=== PATIENT | female | born 1945 | race Caucasian/White ===

== ENCOUNTER 2017-11-18 17:02 | Emergency (ER) | payer OTHER ==
[~2017-11-18] VITALS: Ht 172.7 cm; Wt 81.6 kg
[~2017-11-18 17:02] MED LIST: ALEVE220 M1 PO; ALEVE220 MG PO; ANTIVERT/2525 MG PO; HYDR25T PO; OMEPRAZOLE20 MG PO; PEPCID20 MG PO; PHENERGAN25 M1 PO; PRILOSEC20 M1 PO; TORADOL10 MG PO; Zestril,Prinivil5 MG PO
[2017-11-18 17:46] LABS: BASO % 0.7 % (0.0-1.0); EOS # 0.3 10*3/uL (0.0-0.4); EOS % 4.4 % (1.0-4.0); HEMATOCRIT 41.1 % (37.0-47.0); HEMOGLOBIN 13.2 g/dl (12.0-16.0); LYMPH % 33.5 % (27.0-41.0); MEAN CELL VOLUME 92.8 fl (81.0-99.0); MEAN CORPUSCULAR HGB 29.8 pg (27.0-31.0); MEAN CORPUSCULAR HGB CONC 32.1 g/dl (33.0-37.0); MEAN PLATELET VOLUME 9.7 fl (9.6-12.3); MONO # 0.8 10*3/uL (0.1-1.0); MONO % 13.5 % (3.0-9.0); NEUT # 2.8 10*3/uL (2.3-7.9); NEUT % 47.6 % (47.0-73.0); PLATELET COUNT AUTOMATED 214 10*3/uL (130-400); RED BLOOD COUNT 4.43 10*6/uL (4.10-5.10); RED CELL DISTRI WIDTH 13.4 % (0-14.5); WHITE BLOOD COUNT 5.9 10*3/uL (4.8-10.8)
[2017-11-18 18:00] LABS: ALBUMIN 3.4 gm/dl (3.1-4.5); CREATININE 1.19 mg/dL (0.55-1.02); POTASSIUM 3.8 mmol/L (3.5-5.1); TOTAL PROTEIN 7.1 gm/dL (6.4-8.2)
[2017-11-18 18:19] LABS: BILIRUBIN NEGATIVE (NEGATIVE); BLOOD TRACE-INTACT (NEGATIVE); CLARITY CLEAR (CLEAR); COLOR YELLOW (YELLOW); GLUCOSE NEGATIVE (NEGATIVE); KETONE TRACE (NEGATIVE); LEUKO ESTERASE NEGATIVE (NEGATIVE); NITRITE NEGATIVE (NEGATIVE); PH 5.5 (5.0-9.0); SPECIFIC GRAVITY >= 1.030 (1.005-1.030); UROBILINOGEN 0.2 E.U./dl (0.2-1.0)
[2017-11-18 18:25] LABS: BACTERIA TRACE; EPITHELIAL CELLS 20-25; MUCOUS 1+; WBC 0-2 wbc/hpf (0-5)
[2017-11-18] MEDS ORDERED: ANUSOL-HC25 MG R (19:47)
[2017-11-18] MEDS ORDERED: CIPRO500 MG PO (19:47)
[2017-11-18] MEDS ORDERED: FLAGYL500 MG PO (19:47)
[2017-11-18 19:52] VITALS: BP 138/78
== END 2017-11-18 19:57 | disposition home or self-care (01) ==
LOC: ED 17:02
PROVIDERS: Nurse Practitioner Family
DX: K64.8 Other hemorrhoids (principal); K57.32 Diverticulitis of large intestine without perforation or abscess without bleeding; Z90.710 Acquired absence of both cervix and uterus; Z98.890 Other specified postprocedural states; Z79.899 Other long term (current) drug therapy; Z91.041 Radiographic dye allergy status; Z88.0 Allergy status to penicillin

== ENCOUNTER 2018-04-05 13:12 | Inpatient (IN) | payer OTHER ==
[~2018-04-05] VITALS: Ht 172.7 cm; Wt 81.6 kg
--- NOTE | ~2018-04-05 | PR ---
[place], [place] PROGRESS NOTE NAME: BECCA ALEXANDRE UNIT #: [id number] ROOM: 412 DOCTOR: SALVATORE GONZALEZ MD,DADA BIRTHDATE: [birth year] DOS: 04/07/2018 SUBJECTIVE: The patient was noted comfortable at this time without any acute distress. Bronchoscopy done yesterday with partial reduction in the cough, however, still noted significant cough. Shortness of breath occurs with exertion. Denies symptoms of fever or chills or any chest pain. Denies symptoms of nausea or vomiting. OBJECTIVE: VITAL SIGNS: For the patient which were recorded showed the temperature is normal in the last 24 hours. The respiratory rate of the patient recorded as 21, heart rate of 117-102, blood pressure 139/74 to 130/82. Pulse oxygen saturation on room air was 92% saturation. HEENT: Head was atraumatic. Eyes nonicterus. NECK: Supple. CARDIOVASCULAR SYSTEM: S1, S2 audible. LUNGS: The patient was noted without any crackles. There was no wheezing. Decreased breath sounds in the lower portion of the lungs. ABDOMEN: Soft, nontender. EXTREMITIES: No edema. IMPRESSION: Acute congestive heart failure with bilateral pleural fluid, pending echocardiogram for the patient in atrial fibrillation. Acute tracheobronchitis, suspected bronchial asthma and cough, other multiple factors. The culture results were pending. The bronchial washing pending. PLAN OF TREATMENT: The patient has been ordered diuretics. Lasix 40 mg b.i.d. 2 doses today by Cardiology Services. Await for the echocardiogram assessment. Continue culture results. Reduction in Solu-Medrol. Tomorrow, switching the patient to oral medication. Further workup to be done after maximal medical management of the patient's cardiac disease during this hospitalization, outpatient would be advised. DADA CHASE MD CM:ANIL [id number] DADA GONZALEZ MD 04/08/18 0102 interface
--- NOTE | ~2018-04-05 | EKG ---
[place], [place] ELECTROCARDIOGRAM REPORT NAME: BECCA ALEXANDRE UNIT #: [id number] ROOM: 412 DOCTOR: ENID DRAFT REPORT BIRTHDATE: [birth year] [facility] Test Date: 2018-04-05 Test Time: 16:17:24 Pat Name: BECCA ALEXANDRE Department: Room: 412 Gender: F Project Developer: : 1945 Requested By: MAURISIO ALLEN Order Number: [id number] Reading MD: Anders Moss MD Measurements Intervals [place] Rate: 88 P: [place]: QRS: 29 QRSD: 89 T: -6 QT: 371 QTc: 449 Interpretive Statements Atrial fibrillation Ventricular premature complex Borderline T abnormalities, inferior leads Baseline wander in lead(s) V2 No previous ECG available for comparison Electronically Signed On 04-12-2018 13:06:13 PST by Anders Moss MD CM:EKGRPT:ELECTROCARDIOGRAM REPORT 1617 1306 MAURISIO ALLEN EPIPHANY DRAFT REPORT MAURISIO ALLEN
--- NOTE | ~2018-04-05 | PR ---
[place], [place] PROGRESS NOTE NAME: BECCA ALEXANDRE UNIT #: [id number] ROOM: 412 DOCTOR: SALVATORE GONZALEZ MD,DADA BIRTHDATE: [birth year] DOS: 04/08/2018 PULMONARY PROGRESS NOTE SUBJECTIVE: The patient was complaining of pain in the back that occurred last night with radiation to the front. The pain was noted with tenderness in the right lower quadrant. The patient was also noted with vomiting. She denies symptoms of hemoptysis, fever, or chills. Cough has remained and not resolved. She denies any symptoms of pain of the chest. The remaining systems were reviewed and they were noted all negative. OBJECTIVE: VITAL SIGNS: The vital signs of the patient, which has been recorded shows normal temperature, respiratory rate of 20, heart rate of 118-99, and blood pressure of 145/83-138/80. The pulse oxygen saturation recorded as 93% at rest on room air. HEENT: On examination, no acute change. NECK: Supple. CARDIOVASCULAR: S1, S2 is audible. LUNGS: The patient was noted without any crackles, rhonchi, or wheezing. ABDOMEN: Noted tenderness in the right lower quadrant. Bowel sounds present. EXTREMITIES: Without any acute edema. MUSCULOSKELETAL: Without any acute deformities. LABORATORY DATA: BMP of the patient this morning, BUN is 25, creatinine is 1.19, and glucose is 142. CBC this morning: WBC count is normal, hemoglobin is 10.8, hematocrit is 34.0, and platelet count is normal. Culture of the bronchial washing were noted as normal lynda. DIAGNOSTIC DATA: CT scan of the abdomen and pelvis that was completed by the radiologist report reported pericholecystic fluid, possibility of cholecystitis would be raised. Also, 5.1 segment of wall thickening of sigmoid colon was also stated. Barium enema, colonoscopy was suggested. The lower portion of the CT of the thorax was reviewed, which shows partial reduction of the small pleural fluid. IMPRESSION: 1. Possible cholecystitis with sigmoid diverticulitis as well. 2. The patient with cough related to bronchial aspiration of the etiology, which has been still noted persistent. Cultures of the bronchial washing were noted as negative. PLAN OF MANAGEMENT: At this time, discontinue the oral corticosteroids for this patient. The patient was ordered symptomatic management of cough with the use of the Robitussin-AC. Follow the recommendation of the instrument shop supervisor for the pleural fluid, tachycardia, and others including congestive heart failure. GI consultation might be needed for further assessment. Other supportive therapy, plan of management, care at this time. Additional treatment changes will be done based on the progression of the illness. [place], [place] PROGRESS NOTE NAME: BECCA ALEXANDRE UNIT #: [id number] ROOM: [facility] DOCTOR: DADA ACUNA MD BIRTHDATE: [birth year] DADA CHASE MD CM:PNTRANS 1201 DADA GONZALEZ MD 04/09/18 0112 interface
--- NOTE | ~2018-04-05 | PROC NOTE ---
[place], [place] PROCEDURE NOTE NAME: BECCA ALEXANDRE UNIT #: [id number] ROOM: 412 DOCTOR: SALVATORE GONZALEZ MD,DADA BIRTHDATE: [birth year] DOS: 04/06/2018 BRONCHOSCOPY NOTE PREOPERATIVE DIAGNOSIS: Persistent severe nonproductive cough, inability to expectorate sputum. POSTOPERATIVE DIAGNOSES: Removal of small amount of mucus impaction of major airways bilaterally. There were no endobronchial obstructive lesions. PROCEDURE DESCRIPTION: Informed consent obtained for the patient. The patient brought to the OR and placed in supine position. Conscious sedation administered by Anesthesia Department. After achieving appropriate sedation, airway introduced into the mouth. Bronchoscope advanced to airway into laryngeal area. Epiglottis and vocal cords were seen. Vocal cord is moving symmetrical movements. Bronchoscope advanced into the tracheal lumen. A small amount of secretion present in tracheal lumen, which was suctioned out and sent for cultures. The endobronchial tree was inspected as right upper, right middle, right lower, left upper, lingular lower lobe bronchi. Small amount of mucus present in the endobronchial tree without any endobronchial obstructive lesions. All the secretions suctioned out. Mucus plugs were removed and sent for culture. Procedure well tolerated by the patient without any difficulty. Postoperative findings will be discussed with the patient once the patient recovered the effects of acute sedation. DADA CHASE MD CM:PROCNOTE:PROCEDURE NOTE [id number] 2201 DADA GONZALEZ MD
--- NOTE | ~2018-04-05 | CON ---
[place], [place] REPORT OF CONSULTATION NAME: BECCA ALEXANDRE UNIT #: [id number] ROOM: 412 DOCTOR: SALVATORE GONZALEZ MDDADA BIRTHDATE: [birth year] DOS: 04/06/2018 REASON FOR CONSULTATION: Severe nonresolving cough, ongoing for the past 3 months, nonresolving. HISTORY OF PRESENT ILLNESS: This is a 72-year-old white female patient who presented to the Emergency Room initially reported symptoms of having severe coughing, inability to expectorate sputum, stating that she has "fireball in her throat, cannot expectorate." The patient's symptoms have been started as the patient underwent EGD, who stated that she has been not feeling well since then. She has been seen by the merchandise appraiser. The patient was prescribed Biaxin. She has taken the medication without any improvement in symptom. She does have symptoms of wheezing as well as with shortness of breath with exertion. Denies symptoms of chest pain. The patient has been admitted to the hospital for further medical management at the present time. REVIEW OF SYSTEMS: CONSTITUTIONAL: Fatigue and tiredness reported, without any symptoms of fever or chills. EYES: Denies any burning, redness, or tenderness. EARS, NOSE, THROAT SYMPTOMS: Denies sore throat, hoarseness, otalgia, postnasal drainage or epistaxis. CARDIOVASCULAR: Denies angina pain, edema, pain of the lower extremities. GASTROINTESTINAL: Dysphagia, nausea, vomiting, diarrhea, abdominal pain, hematemesis, melena, or hematochezia. GENITOURINARY: No dysuria, suprapubic pain, hematuria. VISIBLE SKIN: Denies any lesions, rashes or open areas. MUSCULOSKELETAL: No acute joint pain, redness or tenderness. CENTRAL NERVOUS SYSTEM: Denies dizziness, diplopia, syncopal episode, or seizures. Remaining systems were reviewed and they were noted all negative. PAST MEDICAL HISTORY: The patient was known with history of: 1. Gastroesophageal reflux. 2. Essential hypertension. PAST SURGICAL HISTORY: For this patient was: 1. Craniotomy for the brain tumor. 2. EGD. 3. Colonoscopy. SOCIAL HISTORY: The patient is , has 2 children, lives at home. Denies any history of alcohol use, illicit drug use or tobacco use. FAMILY HISTORY: Father at age of 7878 years old of myocardial infarction. Mother of 65-year-old of myocardial infarction as well. HOME MEDICATIONS: Noted use of lisinopril, Protonix and Anusol suppository. DRUG ALLERGIES: [place], [place] REPORT OF CONSULTATION NAME: BECCA ALEXANDRE UNIT #: [id number] ROOM: 412 DOCTOR: SALVATORE GONZALEZ MD,DADA BIRTHDATE: [birth year] 1. IVP DYE. 2. PENICILLIN. 3. METRONIDAZOLE. PHYSICAL EXAMINATION: GENERAL: This is a 72-year-old white female who has been currently noted awake, alert, in no acute distress this morning of assessment. N.p.o. past midnight. Height of 5 feet 5 inches, weight of 181, BUN 29. VITAL SIGNS: For the patient which has been recorded shows a normal temperature, respiratory rate 18-20, heart rate of 131 for the patient to 103, blood pressure 149/68-144/64. Pulse oxygen saturation recorded as 90% at rest on room air. HEENT: Examination shows head was atraumatic. Eyes nonicterus. NECK: Supple. CARDIOVASCULAR: S1, S2 audible. LUNGS: The patient noted [id number] decreased breath sounds, no wheeze or crackles. ABDOMEN: Soft, nontender. Bowel sounds present. EXTREMITIES: No acute edema. MUSCULOSKELETAL: Without any acute deformities except mild senile kyphosis. CENTRAL NERVOUS SYSTEM: Cranial nerves 2-12 intact. LABORATORY DATA: The patient's CBC that was done yesterday on admission was noted as normal WBC count, hemoglobin and hematocrit. Eosinophils was elevated at 3.9%. Lactic acid 1.2. CMP that was done yesterday noted normal BUN and creatinine. Potassium 2.5. CBC that was done this morning, WBC count 2.9, hemoglobin 11.4, platelet count was normal. CMP of the patient this morning BUN 10, creatinine 1.04. Glucose 150, potassium 3.2. Chest x-ray that was done was not noted with any acute pulmonary abnormality. The chest CT scan, which was done without contrast reviewed personally on PACS images show evidence of ground glass opacities noted in the lungs bilaterally with evidence of a drhek-by-jqgngvdq right and a very small left pleural effusion. IMPRESSION: 1. The patient who has been currently admitted to the hospital with severe nonproductive cough, inability to expectorate sputum, possible mucus impaction. 2. Coughing, most likely related to congestive heart failure which is the cause of this patient's bilateral pleural fluid as well. Angiotensin converting enzyme inhibitor resulting in the cough would be also considered in the differential diagnosis. Other differential to be considered possibility of occult bronchial asthma, manifesting as cough with possibility of micro-aspirations. PLAN OF MANAGEMENT: Proceed for bronchoscopy and endobronchial tree for the patency. The patient getting Solu-Medrol that will be continued. Cardiology assessment for the assessment of cardiac function. Echocardiogram for the patient. Discontinue lisinopril, replace it with the addition medication such as ARB medication to prevent the side effect relayed as cough. Bronchodilator will be continued. The patient has been also noted to have tachycardia, which has been assessed by the Cardiology Services. Other additional treatment [place], [place] REPORT OF CONSULTATION NAME: BECCA ALEXANDRE UNIT #: [id number] ROOM: 412 DOCTOR: DADA ACUNA MD BIRTHDATE: [birth year] changes will be made based on progression of the illness. Usual care. Supportive therapy, plan of management, care plan of treatment and other care. DADA CHASE MD CM:CONSTR:REPORT OF CONSULTATION 1231 04/06/18 1612 interface
--- NOTE | ~2018-04-05 | EKG ---
[place], [place] ELECTROCARDIOGRAM REPORT NAME: BECCA ALEXANDRE UNIT #: [id number] ROOM: 412 DOCTOR: ENID DRAFT REPORT BIRTHDATE: [birth year] [facility] Test Date: 2018-04-06 Test Time: 10:52:53 Pat Name: BECCA ALEXANDRE Department: Room: 412 2 Gender: F Remote Pilot Operator: Olivia Lund : 1945 Requested By: WILMAR ALLEN Order Number: [id number] Reading MD: Nicholas Laureano MD Measurements Intervals [place] Rate: 130 P: [place]: QRS: 46 QRSD: 83 T: -15 QT: 331 QTc: 487 Interpretive Statements Atrial fibrillation Ventricular premature complex Borderline repolarization abnormality or aberrantly conducted beat Electronically Signed On 04-06-2018 18:21:09 PST by Nicholas Laureano MD CM:EKGRPT:ELECTROCARDIOGRAM REPORT 1052 1821 WILMAR ALLEN EPIPHANY DRAFT REPORT WILMAR ALLEN
--- NOTE | ~2018-04-05 | PR ---
[place], [place] PROGRESS NOTE NAME: BECCA ALEXANDRE UNIT #: [id number] ROOM: 412 DOCTOR: SALVATORE GONZALEZ MD,DADA BIRTHDATE: [birth year] DOS: 04/07/2018 SUBJECTIVE: The patient was noted comfortable at this time, resting in the bed. The coughing has been resolving. Still complained of pain in the low portion of the abdomen and back. Denies symptoms of fevers, chills or hemoptysis. OBJECTIVE: VITAL SIGNS: Normal temperature, respiratory 20, heart rate 70, blood pressure 110/68. Pulse ox saturation recorded on room air 91% saturation. HEAD, EYES, EARS, NOSE, AND THROAT: Head was atraumatic. Eyes nonicterus. NECK: Supple. CARDIOVASCULAR SYSTEM: S1, S2 is audible. LUNGS: Noted without any wheeze or crackles at present time. The lungs appear to be clear bilaterally. ABDOMEN: Soft, nontender. Bowel sounds present. EXTREMITIES: Noted without any acute edema. IMPRESSION: Resolving congestive heart failure, bilateral pleural fluid, resolving acute bronchitis, exacerbation of bronchial asthma. PLAN OF MANAGEMENT: Continuation of the current plan of management as in progress. Bronchodilators and other therapy, plan of care as well. Management of the acute colitis for this patient for GI services. Outpatient assessment with a post-discharge would be considered pulmonary standpoint, the patient will be considered discharge at any time once she is noted medically cleared for other illnesses. DADA CHASE MD CM:ANIL 1011 1419 DADA GONZALEZ MD 04/10/18 1418 interface
--- NOTE | ~2018-04-05 | CON ---
[place], [place] REPORT OF CONSULTATION NAME: BECCA ALEXANDRE UNIT #: [id number] ROOM: 412 DOCTOR: MARCELLA WALLS MD BIRTHDATE: [birth year] DOS: 04/06/2018 CARDIOLOGY CONSULTATION REASON FOR CONSULTATION: The patient has tachycardia, newly documented atrial fibrillation. HISTORY OF PRESENT ILLNESS: The patient is a 72-year-old woman who has no previous history of documented heart disease. She does have a history of hypertension, but denies valvular heart disease or coronary artery disease. She states that she did undergo upper endoscopy in 01/2018. Since then, she has had a persistent cough. Nothing seems to make it better. It is nonproductive. There was no associated dyspnea or fever. She was scheduled for a colonoscopy, but decided to delay it because of the cough. When she notified the physician's office that she was going to delay the colonoscopy, she was instructed to go to the Emergency Room for evaluation of the cough. She was found to be in atrial fibrillation with a rapid ventricular response and was admitted to the hospital for further care. The patient continues to have cough in the hospital. Thus far, she has not been placed on any rate slowing medications. She denies any chest pain, although she did have heartburn after taking potassium this morning. She denies lightheadedness or syncope. She denies orthopnea or PND. She does have chronic leg swelling, which at times is quite severe per her report. PAST MEDICAL HISTORY: Includes: 1. History of benign brain tumor resected in 1984. The patient is not sure of what the nature of the brain tumor was. 2. History of essential hypertension. 3. Diverticulitis. 4. Gastroesophageal reflux disease. 5. Hyperlipidemia. 6. Persistent cough, workup in progress. 7. Atrial fibrillation documented, 04/05/2018. MEDICATIONS: Prior to admission: Tessalon Perles 100 mg t.i.d., clarithromycin 500 mg b.i.d., folic acid 1 mg daily, pantoprazole 40 mg daily and sulfasalazine 500 mg 2 tablets b.i.d. ALLERGIES: She lists allergies to PENICILLINS, METRONIDAZOLE and IVP DYE. FAMILY HISTORY: Her mother at age 78 of a heart attack and her father at age 65 of a heart attack. REVIEW OF SYSTEMS: The patient denies diplopia or loss of vision. She denies lightheadedness or syncope. She denies fevers, chills or sweats. She has not had any recent weight change. She does have a cough noted above. She denies orthopnea or PND. She denies hemoptysis or hematemesis. She denies any skin [place], [place] REPORT OF CONSULTATION NAME: BECCA ALEXANDRE UNIT #: [id number] ROOM: 412 DOCTOR: MARCELLA WALLS MD BIRTHDATE: [birth year] rashes. She denies change in her bowel or bladder habits. She denies blood in her stools or urine. She does admit to bilateral varicose veins in her lower extremities associated with lower extremity swelling. The remainder of the review of systems is negative except as noted above. SOCIAL HISTORY: The patient does not smoke or consume alcohol or illegal drugs. PHYSICAL EXAMINATION: GENERAL: The patient is an elderly white female who is awake, alert and oriented. VITAL SIGNS: Pulse is 120 and irregularly irregular. Blood pressure is 150/90. She is afebrile. She weighs 81.6 kilogram and has a body mass index of 30. HEENT: Normocephalic and atraumatic. Extraocular muscles are intact. Sclerae are clear. Pupils are equal, round and react to light. The oral mucosa is moist. Tongue is midline. NECK: Supple. She has no jugular distention or hepatojugular reflux. Carotids are full. There are no bruits. She has no neck or supraclavicular masses. No thyromegaly. LUNGS: Respirations are unlabored. Her chest has decreased breath sounds at the bases. She does have mild post cough wheeze. She is unable to take a deep breath because of coughing. She has no presacral edema or chest wall tenderness. CARDIOVASCULAR: Her heart has a regular rhythm. She has a fourth heart sound, but no third heart sound. ABDOMEN: Soft and normally active without masses, organomegaly or bruits. EXTREMITIES: Showed no edema. Peripheral pulses are palpable in the feet. She does have marked bilateral varicose veins below the knees. LABORATORY DATA: Her electrocardiogram shows atrial fibrillation with a rapid ventricular response. She has nonspecific ST and T-wave changes. Chest x-ray shows small right pleural effusion and chronic lung changes. Hemoglobin is 11.4, hematocrit 35.7. There are 2900 white cells and 183,000 platelets present. Sodium is 140, potassium 3.2, chloride 107, CO2 21, BUN 10 and creatinine 1.04. TSH is normal. Troponin levels have not been obtained. IMPRESSIONS: 1. Newly-documented atrial fibrillation. 2. CHADS-VASc score of 3 indicating a high risk for stroke without anticoagulation therapy. 3. History of hypertension. 4. Persistent cough, etiology to be determined. PLAN: We will place her on beta artis for rate control and start her on stroke prophylaxis with Eliquis. It may be that slowing her heart rate down will improve cardiac performance and may actually help her cough and dyspnea with exertion. For now, we will not consider cardioversion, but if she does not convert spontaneously, we can discuss this after 3-4 weeks of anticoagulation. I thank the hospitalist physicians for asking our advice regarding her care. [place], [place] REPORT OF CONSULTATION NAME: BECCA ALEXANDRE UNIT #: [id number] ROOM: 412 DOCTOR: MARCELLA WALLS MD BIRTHDATE: [birth year] MARCELLA WALLS MD CM:CONSTR:REPORT OF CONSULTATION 1515 04/06/18 1600 interface
--- NOTE | ~2018-04-05 | PR ---
[place], [place] PROGRESS NOTE NAME: BECCA ALEXANDRE UNIT #: [id number] ROOM: 412 DOCTOR: MARCELLA WALLS MD BIRTHDATE: [birth year] DOS: 04/07/2018 CARDIOLOGY PROGRESS NOTE SUBJECTIVE: The patient was seen at her bedside today, 04/07/2018, with a family member at the bedside. She has undergone bronchoscopy. She tolerated the procedure well. She still has a persistent cough with dyspnea and fatigue. She does note that she felt much more fatigued yesterday and her athletic monitor does show that her heart remains fast despite initiating metoprolol therapy. Chest x-ray did show a small right pleural effusion. An echocardiogram is pending. I presume, however, that she does have diastolic heart failure related to atrial fibrillation with a rapid ventricular response. PHYSICAL EXAMINATION: VITAL SIGNS: Today, her pulse is 130 and irregularly irregular. Blood pressure is 130/82. She is afebrile. NECK: Supple. She does have mild hepatojugular reflux and jugular distention when sitting at a 45 degree angle. Carotids are full. LUNGS: Respirations are somewhat labored at rest. She does have a few crackles at the bases. She has no presacral edema. HEART: Has an irregularly irregular rhythm without murmurs or gallops. The PMI is not displaced. ABDOMEN: Soft and normally active. EXTREMITIES: Showed no edema. She does have bilateral varicose veins. IMPRESSIONS: 1. Newly documented atrial fibrillation. 2. [id number] score of 3 indicating high risk for stroke if the patient is not anticoagulated. 3. History of hypertension. 4. Persistent cough, evaluation in progress. 5. Probable heart failure with preserved ejection fraction due to atrial fibrillation. Echocardiogram is pending. PLAN: I will increase her metoprolol to try to better control her heart rate response to atrial fibrillation. I will diurese her today with IV furosemide. We will review her echocardiogram when it is available and make further recommendations at that time. As noted previously, however, I believe she should remain on lifelong anticoagulation therapy since her risk for stroke is high without it. The available family member was able to confirm for me that the patient has not been on lisinopril for several months. It is therefore totally unlikely that the SAHRA inhibitor caused her cough. I thank the hospitalist physicians for asking our advice regarding her care. [place], [place] PROGRESS NOTE NAME: BECCA ALEXANDRE UNIT #: [id number] ROOM: 412 DOCTOR: TITI GALINDO,MARCELLA BIRTHDATE: [birth year] MARCELLA WALLS MD CM:PNNAVJOT 0939 1224 MARCELLA WALLS MD 04/07/18 1223 interface
--- NOTE | ~2018-04-05 | PR ---
[place], [place] PROGRESS NOTE NAME: BECCA ALEXANDRE UNIT #: [id number] ROOM: 412 DOCTOR: MARCELLA WALLS MD BIRTHDATE: [birth year] DOS: 04/08/2018 CARDIOLOGY PROGRESS NOTE SUBJECTIVE: The patient was seen at her bedside today, 04/08/2018, for followup of her newly documented atrial fibrillation with rapid ventricular response. She tells me that her cough is slightly better, but was quite bad last evening. Her monitor shows that she is still in atrial fibrillation with a rapid ventricular response despite being on metoprolol 100 mg twice a day. She was given intravenous diuretic yesterday and did diurese, but still the cough is noted. PHYSICAL EXAMINATION: VITAL SIGNS: Today, her pulse is 120 and irregularly irregular, blood pressure is 142/86. She weighs 81.6 kg and is afebrile. NECK: Supple. She does have jugular distention when sitting in a 45 degree angle. Carotids are full. LUNGS: Respirations are unlabored, but she still coughs with a deep breath. She has decreased breath sounds at the bases, but no wheezes or rales. HEART: Has an irregularly irregular rhythm without murmurs or gallops. ABDOMEN: Soft and normally active. EXTREMITIES: Showed no edema, but she does have bilateral varicose veins. LABORATORY DATA: Hemoglobin is 10.8, white count 10,500, platelet count 219,000. Sodium 143, potassium 4.2, BUN 25, creatinine 1.19. IMPRESSIONS: 1. Newly documented atrial fibrillation. Rate not yet well controlled. 2. [id number] score of 3 indicating high risk for stroke if the patient is not anticoagulated. 3. History of hypertension, not yet well controlled. 4. Persistent cough, evaluation in process. 5. Probable heart failure with preserved ejection fraction, due to atrial fibrillation and diastolic dysfunction. 6. Echocardiogram 04/07/2018 showed normal left ventricular size, wall motion and ejection fraction. She has mild concentric left ventricular hypertrophy and an ejection fraction of 55%, diastole could not be fully assessed, but she does have severe left atrial enlargement. There is physiologic mitral insufficiency and no stenosis. There is no apparent pulmonary hypertension. PLAN: We will add diltiazem to her regimen to help slow her heart rate further. We will continue her diuresis with oral furosemide. She will continue with apixaban for stroke prophylaxis. I thank the hospitalist physicians for asking our advice regarding her care. [place], [place] PROGRESS NOTE NAME: BECCA ALEXANDRE UNIT #: [id number] ROOM: 412 DOCTOR: MARCELLA WALLS MD BIRTHDATE: [birth year] MARCELLA WALLS MD CM:PNTRANS [id number] MARCELLA WALLS MD 04/08/18 1646 interface
--- NOTE | ~2018-04-05 | PR ---
[place], [place] PROGRESS NOTE NAME: BECCA ALEXANDRE UNIT #: [id number] ROOM: 412 DOCTOR: SALVATORE GONZALEZ MD,DADA BIRTHDATE: [birth year] DOS: 04/09/2018 PULMONARY PROGRESS NOTE SUBJECTIVE: The patient is reported reduction in symptoms of coughing in the last 24 hours and expectorates small amount of sputum, which appeared to be thick and mixed with old clotted blood. Denies symptoms of fever or chills. Denies symptoms of hemoptysis. The abdominal pain seems to be noted intermittently. OBJECTIVE: VITAL SIGNS: Normal temperature, respiratory rate 18, heart rate 86, blood pressure 130/72. Pulse oxygen saturation was recorded as 96% saturation at rest on room air. HEENT: No acute change. NECK: Supple. CARDIOVASCULAR: S1 and S2 audible. LUNGS: Without any wheezing or crackles at the present time. ABDOMEN: Soft, nontender. Bowel sounds present. EXTREMITIES: No acute edema. IMPRESSION: 1. Bilateral pleural fluid with congestive heart failure. 2. Nonproductive cough related to bronchial asthma. 3. The patient with acute sigmoid colitis. PLAN OF MANAGEMENT: No changes from the pulmonary standpoint. Continue current plan of management as in progress. Supportive care. Follow the recommendation of the outplacement consultant for medical management of several other ongoing medical problems including the heart and the abdomen. DADA CHASE MD CM:PNTRANS [id number] DADA GONZALEZ MD 04/09/18 1524 interface
[~2018-04-05 13:12] MED LIST changes: +ANUSOL-HC25 MG R; +CIPRO500 MG PO; +FLAGYL500 MG PO
[2018-04-05 13:18] VITALS: BP 152/109
[2018-04-05] MEDS ORDERED: PROTONIX40 MG PO (13:19)
[2018-04-05 14:02] LABS: BILIRUBIN NEGATIVE (NEGATIVE); BLOOD NEGATIVE (NEGATIVE); CLARITY CLEAR (CLEAR); COLOR YELLOW (YELLOW); GLUCOSE NEGATIVE (NEGATIVE); KETONE NEGATIVE (NEGATIVE); LEUKO ESTERASE NEGATIVE (NEGATIVE); NITRITE NEGATIVE (NEGATIVE); PH 6.5 (5.0-9.0); SPECIFIC GRAVITY >= 1.030 (1.005-1.030)
[2018-04-05 14:09] LABS: BASO % 0.6 % (0.0-1.0); EOS # 0.2 10*3/uL (0.0-0.4); EOS % 3.9 % (1.0-4.0); HEMATOCRIT 37.1 % (37.0-47.0); HEMOGLOBIN 12.1 g/dl (12.0-16.0); LYMPH # 1.9 10*3/uL (1.3-4.4); LYMPH % 35.3 % (27.0-41.0); MEAN CELL VOLUME 91.6 fl (81.0-99.0); MEAN CORPUSCULAR HGB 29.9 pg (27.0-31.0); MEAN CORPUSCULAR HGB CONC 32.6 g/dl (33.0-37.0); MEAN PLATELET VOLUME 10.1 fl (9.6-12.3); MONO # 0.8 10*3/uL (0.1-1.0); MONO % 14.8 % (3.0-9.0); NEUT # 2.4 10*3/uL (2.3-7.9); NEUT % 45.2 % (47.0-73.0); PLATELET COUNT AUTOMATED 210 10*3/uL (130-400); RED BLOOD COUNT 4.05 10*6/uL (4.10-5.10); RED CELL DISTRI WIDTH 13.2 % (0-14.5); WHITE BLOOD COUNT 5.3 10*3/uL (4.8-10.8)
[2018-04-05 14:23] LABS: ALBUMIN 3.4 gm/dl (3.1-4.5); ALKALINE PHOSPHATASE 98 U/L (45-117); BUN 8 mg/dl (7-24); CHLORIDE 104 mmol/L (98-107); CREATININE 0.96 mg/dL (0.55-1.02); POTASSIUM 2.9 mmol/L (3.5-5.1); SGOT/AST 21 IU/L (3-35); SGPT/ALT 23 U/L (12-78); SODIUM 139 mmol/L (136-145); TOTAL PROTEIN 7.3 gm/dL (6.4-8.2)
[2018-04-05 14:39] LABS: BACTERIA 1+; EPITHELIAL CELLS TNTB; RBC 0-2 rbc/hpf (0-2)
[2018-04-05 14:44] VITALS: BP 149/69
[2018-04-05 15:35] VITALS: BP 149/68
[2018-04-05 16:00] VITALS: BP 177/79
[2018-04-05 16:44] VITALS: BP 148/68
[2018-04-05] MEDS ORDERED: CLARITHROMYCIN500 MG PO (16:54)
[2018-04-05] MEDS ORDERED: TESSALON PERLE100 MG PO (16:55)
[2018-04-05] MEDS ORDERED: SULFAZINE500 MG PO (16:58)
[2018-04-05] MEDS ORDERED: NATURE'S BLEND F1 MG PO (16:59)
[2018-04-05 20:00] VITALS: BP 141/65
[2018-04-06] VITALS (8 sets, daily range): BP systolic 130–179; BP diastolic 64–108
[2018-04-06 06:45] LABS: HEMATOCRIT 35.7 % (37.0-47.0); HEMOGLOBIN 11.4 g/dl (12.0-16.0); LYMPH # 0.4 10*3/uL (1.3-4.4); LYMPH % 13.6 % (27.0-41.0); MEAN CELL VOLUME 92.7 fl (81.0-99.0); MEAN CORPUSCULAR HGB 29.6 pg (27.0-31.0); MEAN CORPUSCULAR HGB CONC 31.9 g/dl (33.0-37.0); MEAN PLATELET VOLUME 10.2 fl (9.6-12.3); MONO % 1.4 % (3.0-9.0); NEUT # 2.4 10*3/uL (2.3-7.9); NEUT % 84.7 % (47.0-73.0); PLATELET COUNT AUTOMATED 183 10*3/uL (130-400); RED BLOOD COUNT 3.85 10*6/uL (4.10-5.10); RED CELL DISTRI WIDTH 13.3 % (0-14.5); WHITE BLOOD COUNT 2.9 10*3/uL (4.8-10.8)
[2018-04-06 06:57] LABS: BUN 10 mg/dl (7-24); CHLORIDE 107 mmol/L (98-107); CHOLESTEROL 160 mg/dL (<200); CREATININE 1.04 mg/dL (0.55-1.02); HDL CHOLESTEROL 60 mg/dl (40-60); LDL CHOLESTEROL 88 mg/dL (9-159); PHOSPHOROUS 2.2 mg/dL (2.5-4.9); POTASSIUM 3.2 mmol/L (3.5-5.1); SGOT/AST 37 IU/L (3-35); SGPT/ALT 42 U/L (12-78); SODIUM 140 mmol/L (136-145); TRIGLYCERIDES 58 mg/dl (<150); VLDL CHOLESTEROL 12 mg/dL (6-40)
[2018-04-06 07:03] LABS: ALKALINE PHOSPHATASE 93 U/L (45-117); FREE T4 1.24 ng/dl (0.76-1.46); THYROID STIM HORMONE (HS) 0.564 uIU/ml (0.358-4.75)
[2018-04-06 07:50] LABS: VITAMIN D, 25-HYDROXY 43.9 ng/mL (30-100)
[2018-04-07] VITALS: BP 128/83
[2018-04-07 08:00] VITALS: BP 130/82
[2018-04-07 12:00] VITALS: BP 139/74
[2018-04-07 14:09] LABS: ACID FAST SPEC PROCESSING Concentration (.)
[2018-04-07 16:00] VITALS: BP 132/69
[2018-04-07 20:00] VITALS: BP 138/80; BP 140/94
[2018-04-08] VITALS: BP 145/83
[2018-04-08 06:54] LABS: HEMOGLOBIN 10.8 g/dl (12.0-16.0); LYMPH # 0.7 10*3/uL (1.3-4.4); MEAN CELL VOLUME 92.1 fl (81.0-99.0); MEAN CORPUSCULAR HGB 29.3 pg (27.0-31.0); MEAN CORPUSCULAR HGB CONC 31.8 g/dl (33.0-37.0); MEAN PLATELET VOLUME 10.4 fl (9.6-12.3); MONO # 0.8 10*3/uL (0.1-1.0); MONO % 7.9 % (3.0-9.0); NEUT # 8.9 10*3/uL (2.3-7.9); NEUT % 84.7 % (47.0-73.0); PLATELET COUNT AUTOMATED 219 10*3/uL (130-400); RED BLOOD COUNT 3.69 10*6/uL (4.10-5.10); RED CELL DISTRI WIDTH 14.2 % (0-14.5); WHITE BLOOD COUNT 10.5 10*3/uL (4.8-10.8)
[2018-04-08 07:26] LABS: CREATININE 1.19 mg/dL (0.55-1.02); PHOSPHOROUS 3.7 mg/dL (2.5-4.9)
[2018-04-08 07:27] LABS: POTASSIUM 4.2 mmol/L (3.5-5.1)
[2018-04-08 12:00] VITALS: BP 142/86
[2018-04-08 16:00] VITALS: BP 109/53
[2018-04-08 20:00] VITALS: BP 123/62
[2018-04-09] VITALS: BP 125/77
[2018-04-09 06:24] LABS: BASO % 0.1 % (0.0-1.0); HEMATOCRIT 33.8 % (37.0-47.0); HEMOGLOBIN 10.7 g/dl (12.0-16.0); LYMPH # 1.5 10*3/uL (1.3-4.4); LYMPH % 19.5 % (27.0-41.0); MEAN CELL VOLUME 91.6 fl (81.0-99.0); MEAN CORPUSCULAR HGB CONC 31.7 g/dl (33.0-37.0); MEAN PLATELET VOLUME 10.4 fl (9.6-12.3); MONO # 1.3 10*3/uL (0.1-1.0); MONO % 16.1 % (3.0-9.0); NEUT % 63.9 % (47.0-73.0); PLATELET COUNT AUTOMATED 209 10*3/uL (130-400); RED BLOOD COUNT 3.69 10*6/uL (4.10-5.10); RED CELL DISTRI WIDTH 14.1 % (0-14.5); WHITE BLOOD COUNT 7.9 10*3/uL (4.8-10.8)
[2018-04-09 06:54] LABS: ALKALINE PHOSPHATASE 70 U/L (45-117); BUN 21 mg/dl (7-24); CHLORIDE 103 mmol/L (98-107); CREATININE 1.07 mg/dL (0.55-1.02); LIPASE 40 U/L (73-393); SGOT/AST 23 IU/L (3-35); SGPT/ALT 40 U/L (12-78); SODIUM 139 mmol/L (136-145); TOTAL PROTEIN 6.2 gm/dL (6.4-8.2)
[2018-04-09 07:09] LABS: POTASSIUM 3.2 mmol/L (3.5-5.1)
[2018-04-09 08:00] VITALS: BP 130/72
[2018-04-09 12:00] VITALS: BP 129/77
[2018-04-09 16:00] VITALS: BP 126/71
[2018-04-09 20:00] VITALS: BP 134/79
[2018-04-10] VITALS: BP 129/68
[2018-04-10 06:49] LABS: EOS # 0.1 10*3/uL (0.0-0.4); HEMATOCRIT 35.2 % (37.0-47.0); HEMOGLOBIN 11.2 g/dl (12.0-16.0); LYMPH # 1.5 10*3/uL (1.3-4.4); LYMPH % 24.8 % (27.0-41.0); MEAN CELL VOLUME 91.9 fl (81.0-99.0); MEAN CORPUSCULAR HGB 29.2 pg (27.0-31.0); MEAN CORPUSCULAR HGB CONC 31.8 g/dl (33.0-37.0); MEAN PLATELET VOLUME 10.4 fl (9.6-12.3); MONO % 16.1 % (3.0-9.0); NEUT # 3.5 10*3/uL (2.3-7.9); NEUT % 57.6 % (47.0-73.0); PLATELET COUNT AUTOMATED 201 10*3/uL (130-400); RED BLOOD COUNT 3.83 10*6/uL (4.10-5.10); RED CELL DISTRI WIDTH 13.8 % (0-14.5); WHITE BLOOD COUNT 6.1 10*3/uL (4.8-10.8)
[2018-04-10 07:23] LABS: CHLORIDE 101 mmol/L (98-107); POTASSIUM 3.6 mmol/L (3.5-5.1); SODIUM 138 mmol/L (136-145)
[2018-04-10 07:32] LABS: BUN 15 mg/dl (7-24); CREATININE 0.93 mg/dL (0.55-1.02)
[2018-04-10 08:00] VITALS: BP 122/68
[2018-04-10 12:00] VITALS: BP 108/53
[2018-04-10 16:00] VITALS: BP 116/61
[2018-04-10 20:00] VITALS: BP 100/58
[2018-04-11] VITALS: BP 110/46
[2018-04-11 06:26] LABS: BASO % 0.2 % (0.0-1.0); EOS # 0.1 10*3/uL (0.0-0.4); EOS % 1.8 % (1.0-4.0); HEMATOCRIT 36.9 % (37.0-47.0); HEMOGLOBIN 11.5 g/dl (12.0-16.0); LYMPH # 1.7 10*3/uL (1.3-4.4); LYMPH % 30.5 % (27.0-41.0); MEAN CORPUSCULAR HGB 28.7 pg (27.0-31.0); MEAN CORPUSCULAR HGB CONC 31.2 g/dl (33.0-37.0); MEAN PLATELET VOLUME 10.2 fl (9.6-12.3); MONO # 0.9 10*3/uL (0.1-1.0); MONO % 16.4 % (3.0-9.0); NEUT # 2.7 10*3/uL (2.3-7.9); NEUT % 50.2 % (47.0-73.0); PLATELET COUNT AUTOMATED 206 10*3/uL (130-400); RED BLOOD COUNT 4.01 10*6/uL (4.10-5.10); RED CELL DISTRI WIDTH 13.4 % (0-14.5); WHITE BLOOD COUNT 5.4 10*3/uL (4.8-10.8)
[2018-04-11 06:36] LABS: BUN 13 mg/dl (7-24); CHLORIDE 103 mmol/L (98-107); CREATININE 0.91 mg/dL (0.55-1.02); POTASSIUM 3.9 mmol/L (3.5-5.1); SODIUM 141 mmol/L (136-145)
[2018-04-11 08:00] VITALS: BP 112/62
[2018-04-11] MEDS ORDERED: FUROSEMIDE40 MG PO (10:16)
[2018-04-11] MEDS ORDERED: XARE20MG PO (10:16)
[2018-04-11] MEDS ORDERED: DILTIAZEM CD240 MG PO (10:16)
[2018-04-11] MEDS ORDERED: METOPROLOL SUC100 M1 PO (10:16)
[2018-04-11] MEDS ORDERED: PROAIR HFA8.5 GM INH (10:25)
[2018-04-11] MEDS ORDERED: PREDNISONE10 MG PO (10:25)
== END 2018-04-11 12:47 | disposition home or self-care (01) | DRG 291 ==
LOC: ED 13:12 → 4E 15:47 → EDHOLD 15:47 → 4E 16:17
PROVIDERS: Emergency Medicine; Family Medicine; Internal Medicine; Internal Medicine Cardiovascular Disease; Internal Medicine Critical Care Medicine; Nurse Practitioner Family; Registered Nurse
PROC: 0BC88ZZ Extirpation of Matter from Left Upper Lobe Bronchus, Via Natural or Artificial Opening Endoscopic (ICD-10-PCS; principal; 2018-04-08)
PROC: 0BC68ZZ Extirpation of Matter from Right Lower Lobe Bronchus, Via Natural or Artificial Opening Endoscopic (ICD-10-PCS; principal; 2018-04-08)
PROC: 0BC38ZZ Extirpation of Matter from Right Main Bronchus, Via Natural or Artificial Opening Endoscopic (ICD-10-PCS; principal; 2018-04-08)
PROC: 0BCB8ZZ Extirpation of Matter from Left Lower Lobe Bronchus, Via Natural or Artificial Opening Endoscopic (ICD-10-PCS; principal; 2018-04-08)
PROC: 0BC78ZZ Extirpation of Matter from Left Main Bronchus, Via Natural or Artificial Opening Endoscopic (ICD-10-PCS; principal; 2018-04-08)
PROC: 0BC58ZZ Extirpation of Matter from Right Middle Lobe Bronchus, Via Natural or Artificial Opening Endoscopic (ICD-10-PCS; principal; 2018-04-08)
PROC: 0BC48ZZ Extirpation of Matter from Right Upper Lobe Bronchus, Via Natural or Artificial Opening Endoscopic (ICD-10-PCS; principal; 2018-04-08)
PROC: 0BC18ZZ Extirpation of Matter from Trachea, Via Natural or Artificial Opening Endoscopic (ICD-10-PCS; principal; 2018-04-08)
PROC: 0BC98ZZ Extirpation of Matter from Lingula Bronchus, Via Natural or Artificial Opening Endoscopic (ICD-10-PCS; principal; 2018-04-08)
DX: I11.0 Hypertensive heart disease with heart failure (principal); I50.31 Acute diastolic (congestive) heart failure; J18.9 Pneumonia, unspecified organism; J20.9 Acute bronchitis, unspecified; K52.9 Noninfective gastroenteritis and colitis, unspecified; J45.901 Unspecified asthma with (acute) exacerbation; J90 Pleural effusion, not elsewhere classified; I48.91 Unspecified atrial fibrillation; E87.6 Hypokalemia; K21.9 Gastro-esophageal reflux disease without esophagitis; X58.XXXA Exposure to other specified factors, initial encounter; E78.00 Pure hypercholesterolemia, unspecified; Z79.01 Long term (current) use of anticoagulants; Z79.899 Other long term (current) drug therapy; Z88.0 Allergy status to penicillin; Z88.8 Allergy status to other drugs, medicaments and biological substances; Z91.041 Radiographic dye allergy status; Z82.49 Family history of ischemic heart disease and other diseases of the circulatory system; Y93.89 Activity, other specified; Y92.89 Other specified places as the place of occurrence of the external cause; Y99.8 Other external cause status

== ENCOUNTER → 2018-06-16 | Outpatient (CLI) | payer OTHER ==
[~2018-06-16] MED LIST changes: +CLARITHROMYCIN500 MG PO; +DILTIAZEM CD240 MG PO; +FUROSEMIDE40 MG PO; +METOPROLOL SUC100 M1 PO; +NATURE'S BLEND F1 MG PO; +PREDNISONE10 MG PO; +PROAIR HFA8.5 GM INH; +PROTONIX40 MG PO; +SULFAZINE500 MG PO; +TESSALON PERLE100 MG PO; +XARE20MG PO
== END | disposition home or self-care (01) ==
LOC: RAD 10:42
DX: M51.36 Other intervertebral disc degeneration, lumbar region (principal); M47.816 Spondylosis without myelopathy or radiculopathy, lumbar region; M41.86 Other forms of scoliosis, lumbar region

== ENCOUNTER → 2018-07-06 | Day surgery (SDC) | payer OTHER ==
[~2018-07-06] VITALS: Ht 157.4 cm; Wt 77.1 kg
--- NOTE | ~2018-07-06 | O ---
[place], [place] OPERATIVE NOTE NAME: BECCA ALEXANDRE UNIT #: [id number] ROOM: DOCTOR: LUCY SHELBY MD BIRTHDATE: [birth year] DOS: 07/06/2018 GASTROENDOSCOPIC REPORT INDICATIONS: A 73-year-old patient who was presented with chief complaint of rectal bleed, history of colitis. PAST MEDICAL HISTORY: Associated with colitis, gastritis, asthma and hypertension. PAST SURGICAL HISTORY: Benign breast biopsy, hysterectomy. ALLERGIES: PENICILLIN. SOCIAL HISTORY: Nonsmoker, nonalcohol consumer. FAMILY HISTORY: Noncontributory. PROCEDURE: Today's procedure part of investigation is colonoscopy plus biopsy. PREMEDICATION: Propofol. SCOPE: Olympus forward-viewing colonoscope 10L video. REPORT: After putting the patient in left lateral position and application of lubricant to rectal pouch and digital examination, scope was introduced; thereafter, under direct visualization, I advanced through the length of colon without difficulty. 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 Severe diverticulosis was noticed, liquid stool throughout the length of colon appreciated. Biopsies from sigmoid colon was obtained. The scope was negotiated all the way to base of cecum. At the base of cecum, a sessile polypoid lesion with piecemeal polypectomy was eradicated. Photographic series of the event was obtained. Air was suctioned out. The patient was extubated, tolerated the procedure well. IMPRESSION: This is a repeat colonoscopy on previously incomplete colonic prep in 01/2018. Today's findings, cecal polyp, status post piecemeal polypectomy, severe diverticulosis and proctosigmoiditis. FINAL DIAGNOSES: Cecal polyp, severe diverticulosis and proctosigmoiditis. PLAN AND DISCUSSION: We are going to continue with sulfasalazine 500 mg 2 tablets b.i.d. and folic acid 1 daily and follow up, otherwise as an outpatient. High fiber diet. FOLLOWUP: Routinely with you in office, p.r.n. visit with us in [facility]. I thank you very much indeed for your kind referral. [place], [place] OPERATIVE NOTE NAME: BECCA ALEXANDRE UNIT #: [id number] ROOM: [facility]: [birth year] LUCY SHELBY MD CM:GURDEEPORD:OPERATIVE NOTE 3 LUCY SHELBY MD 07/06/18933 interface
[2018-07-06 08:04] VITALS: BP 144/64
[2018-07-06 08:48] VITALS: BP 108/50
[2018-07-06 09:03] VITALS: BP 115/63
[2018-07-06 09:18] VITALS: BP 104/74
== END | disposition home or self-care (01) ==
LOC: SDC 07-01 08:00
DX: D12.0 Benign neoplasm of cecum (principal); K52.9 Noninfective gastroenteritis and colitis, unspecified; I10 Essential (primary) hypertension; J45.909 Unspecified asthma, uncomplicated; K57.30 Diverticulosis of large intestine without perforation or abscess without bleeding; K63.89 Other specified diseases of intestine; K21.9 Gastro-esophageal reflux disease without esophagitis; M06.9 Rheumatoid arthritis, unspecified; M81.0 Age-related osteoporosis without current pathological fracture; Z98.890 Other specified postprocedural states; Z87.19 Personal history of other diseases of the digestive system; Z90.710 Acquired absence of both cervix and uterus; Z79.899 Other long term (current) drug therapy

== ENCOUNTER → 2019-03-23 | Outpatient (CLI) | payer OTHER | END | disposition home or self-care (01) | LOC: CARD 03-22 12:30 | DX: I36.1 Nonrheumatic tricuspid (valve) insufficiency (principal); I10 Essential (primary) hypertension; I42.8 Other cardiomyopathies; R06.02 Shortness of breath; R53.83 Other fatigue; I31.3 Pericardial effusion (noninflammatory) ==

== ENCOUNTER → 2019-04-21 | Outpatient (CLI) | payer OTHER ==
[~2019-04-21] MED LIST changes: +VIBRAMYCIN100 MG PO
== END | disposition home or self-care (01) ==
LOC: RESCLI 08:46
DX: I11.0 Hypertensive heart disease with heart failure (principal); I50.32 Chronic diastolic (congestive) heart failure; E78.5 Hyperlipidemia, unspecified; K21.9 Gastro-esophageal reflux disease without esophagitis; K64.8 Other hemorrhoids; I48.0 Paroxysmal atrial fibrillation; J45.20 Mild intermittent asthma, uncomplicated; Z76.89 Persons encountering health services in other specified circumstances; Z79.899 Other long term (current) drug therapy

== ENCOUNTER 2019-04-26 13:03 | Emergency (ER) | payer OTHER ==
[~2019-04-26] VITALS: Ht 162.5 cm; Wt 77.1 kg
[~2019-04-26 13:03] MED LIST changes: -VIBRAMYCIN100 MG PO
[2019-04-26 13:17] VITALS: BP 139/75
[2019-04-26 15:14] LABS: BASO % 0.3 % (0.0-1.0); HEMATOCRIT 35.2 % (37.0-47.0); HEMOGLOBIN 10.6 g/dl (12.0-16.0); LYMPH # 1.1 10*3/uL (1.3-4.4); MEAN CELL VOLUME 82.8 fl (81.0-99.0); MEAN CORPUSCULAR HGB 24.9 pg (27.0-31.0); MEAN CORPUSCULAR HGB CONC 30.1 g/dl (33.0-37.0); MEAN PLATELET VOLUME 10.4 fl (9.6-12.3); MONO # 0.9 10*3/uL (0.1-1.0); MONO % 27.6 % (3.0-9.0); NEUT # 1.3 10*3/uL (2.3-7.9); NEUT % 38.8 % (47.0-73.0); PLATELET COUNT AUTOMATED 171 10*3/uL (130-400); RED BLOOD COUNT 4.25 10*6/uL (4.10-5.10); RED CELL DISTRI WIDTH 16.2 % (0-14.5); WHITE BLOOD COUNT 3.3 10*3/uL (4.8-10.8)
[2019-04-26 15:35] LABS: ALBUMIN 3.2 gm/dl (3.1-4.5); BUN 14 mg/dl (7-24); CHLORIDE 105 mmol/L (98-107); CREATININE 0.98 mg/dL (0.55-1.02); POTASSIUM 3.8 mmol/L (3.5-5.1); SGOT/AST 36 IU/L (3-35); SGPT/ALT 29 U/L (12-78); SODIUM 139 mmol/L (136-145); TOTAL PROTEIN 6.5 gm/dL (6.4-8.2)
[2019-04-26 15:37] LABS: ALKALINE PHOSPHATASE 101 U/L (45-117)
[2019-04-26 16:27] LABS: TOTAL CELLS COUNTED 100 #CELLS
[2019-04-26 16:29] LABS: BURR CELLS FEW; PLATELET SUFFICIENCY NORMAL (NORMAL)
[2019-04-26] MEDS ORDERED: VIBRAMYCIN100 MG PO (17:25)
== END 2019-04-26 17:48 | disposition home or self-care (01) ==
LOC: ED 13:03
PROVIDERS: Emergency Medicine
DX: J40 Bronchitis, not specified as acute or chronic (principal); I10 Essential (primary) hypertension; E78.00 Pure hypercholesterolemia, unspecified; I48.91 Unspecified atrial fibrillation; K21.9 Gastro-esophageal reflux disease without esophagitis; M19.90 Unspecified osteoarthritis, unspecified site; M81.0 Age-related osteoporosis without current pathological fracture; Z79.899 Other long term (current) drug therapy; Z88.0 Allergy status to penicillin; Z91.041 Radiographic dye allergy status; Z88.8 Allergy status to other drugs, medicaments and biological substances

== ENCOUNTER → 2019-05-22 | Outpatient (CLI) | payer OTHER ==
[~2019-05-22] MED LIST changes: +VIBRAMYCIN100 MG PO
== END ==
LOC: RESCLI 13:06
DX: I11.0 Hypertensive heart disease with heart failure (principal); I50.32 Chronic diastolic (congestive) heart failure; E78.5 Hyperlipidemia, unspecified; K21.9 Gastro-esophageal reflux disease without esophagitis; K64.8 Other hemorrhoids; I48.0 Paroxysmal atrial fibrillation; J45.20 Mild intermittent asthma, uncomplicated; J20.8 Acute bronchitis due to other specified organisms; Z79.899 Other long term (current) drug therapy

== ENCOUNTER → 2019-05-25 | Outpatient (CLI) | payer OTHER ==
[2019-05-25 10:16] LABS: BASO % 0.4 % (0.0-1.0); EOS # 0.3 10*3/uL (0.0-0.4); HEMOGLOBIN 10.6 g/dl (12.0-16.0); LYMPH % 35.9 % (27.0-41.0); MEAN CELL VOLUME 86.2 fl (81.0-99.0); MEAN CORPUSCULAR HGB 26.1 pg (27.0-31.0); MEAN CORPUSCULAR HGB CONC 30.3 g/dl (33.0-37.0); MEAN PLATELET VOLUME 10.1 fl (9.6-12.3); MONO # 0.7 10*3/uL (0.1-1.0); MONO % 12.5 % (3.0-9.0); NEUT # 2.5 10*3/uL (2.3-7.9); PLATELET COUNT AUTOMATED 256 10*3/uL (130-400); RED BLOOD COUNT 4.06 10*6/uL (4.10-5.10); WHITE BLOOD COUNT 5.5 10*3/uL (4.8-10.8)
[2019-05-25 10:32] LABS: CREATININE 1.09 mg/dL (0.55-1.02); POTASSIUM 3.4 mmol/L (3.5-5.1)
[2019-05-25 11:02] LABS: VITAMIN D, 25-HYDROXY 36.2 ng/mL (30-100)
== END | disposition home or self-care (01) ==
LOC: LAB 09:23
PROVIDERS: Internal Medicine
DX: I11.0 Hypertensive heart disease with heart failure (principal); I50.32 Chronic diastolic (congestive) heart failure; I48.0 Paroxysmal atrial fibrillation; E78.5 Hyperlipidemia, unspecified; Z76.89 Persons encountering health services in other specified circumstances; Z79.899 Other long term (current) drug therapy

== ENCOUNTER → 2019-05-31 | Outpatient (CLI) | payer OTHER | END | disposition home or self-care (01) | LOC: RESCLI 00:21 | DX: K21.9 Gastro-esophageal reflux disease without esophagitis (principal); I10 Essential (primary) hypertension; I48.91 Unspecified atrial fibrillation; R05 Cough; I11.9 Hypertensive heart disease without heart failure; I50.9 Heart failure, unspecified; E78.5 Hyperlipidemia, unspecified; K57.30 Diverticulosis of large intestine without perforation or abscess without bleeding; K64.8 Other hemorrhoids; Z79.899 Other long term (current) drug therapy; Z98.890 Other specified postprocedural states ==

== ENCOUNTER 2019-08-02 18:47 | Emergency (ER) | payer OTHER ==
[~2019-08-02] VITALS: Ht 170.1 cm; Wt 63.5 kg
[2019-08-02 20:12] LABS: BASO % 0.5 % (0.0-1.0); EOS # 0.2 10*3/uL (0.0-0.4); EOS % 3.9 % (1.0-4.0); HEMATOCRIT 36.7 % (37.0-47.0); LYMPH # 2.3 10*3/uL (1.3-4.4); LYMPH % 37.4 % (27.0-41.0); MEAN CELL VOLUME 85.3 fl (81.0-99.0); MEAN CORPUSCULAR HGB CONC 30.5 g/dl (33.0-37.0); MEAN PLATELET VOLUME 9.9 fl (9.6-12.3); MONO % 16.6 % (3.0-9.0); NEUT # 2.5 10*3/uL (2.3-7.9); NEUT % 41.4 % (47.0-73.0); PLATELET COUNT AUTOMATED 232 10*3/uL (130-400); RED CELL DISTRI WIDTH 16.3 % (0-14.5); WHITE BLOOD COUNT 6.1 10*3/uL (4.8-10.8)
[2019-08-02 20:23] LABS: ACT PARTIAL THROMBO TIME 25.7 SECONDS (20.0-32.1); INTERNATIONAL NORM RATIO 1.1 (2.0-3.5)
[2019-08-02 20:35] LABS: ALBUMIN 3.3 gm/dl (3.1-4.5); CREATININE 1.22 mg/dL (0.55-1.02); POTASSIUM 3.8 mmol/L (3.5-5.1)
[2019-08-02 22:25] VITALS: BP 138/47
== END 2019-08-02 22:45 ==
LOC: ED 18:47
PROVIDERS: Internal Medicine
DX: I63.9 Cerebral infarction, unspecified (principal); M06.9 Rheumatoid arthritis, unspecified; M81.0 Age-related osteoporosis without current pathological fracture; I11.0 Hypertensive heart disease with heart failure; I50.31 Acute diastolic (congestive) heart failure; K21.9 Gastro-esophageal reflux disease without esophagitis; E78.00 Pure hypercholesterolemia, unspecified; I48.91 Unspecified atrial fibrillation; Z91.041 Radiographic dye allergy status; Z88.0 Allergy status to penicillin; Z88.8 Allergy status to other drugs, medicaments and biological substances; Z79.899 Other long term (current) drug therapy; Z79.2 Long term (current) use of antibiotics; Z90.710 Acquired absence of both cervix and uterus

== ENCOUNTER → 2019-09-25 | Outpatient (CLI) | payer OTHER | END | disposition home or self-care (01) | LOC: US 13:04 | DX: I65.23 Occlusion and stenosis of bilateral carotid arteries (principal); I63.513 Cerebral infarction due to unspecified occlusion or stenosis of bilateral middle cerebral arteries; I63.89 Other cerebral infarction ==

== ENCOUNTER → 2019-12-12 | Outpatient (CLI) | payer OTHER ==
[2019-12-12 12:17] LABS: BUN 16 mg/dl (7-24); CHLORIDE 107 mmol/L (98-107); CREATININE 1.05 mg/dL (0.55-1.02); POTASSIUM 3.9 mmol/L (3.5-5.1); SODIUM 140 mmol/L (136-145)
== END | disposition home or self-care (01) ==
LOC: RESCLI 01:07
PROVIDERS: Internal Medicine; ATTEND Internal Medicine
DX: I48.91 Unspecified atrial fibrillation (principal); I48.0 Paroxysmal atrial fibrillation; I11.0 Hypertensive heart disease with heart failure; I50.32 Chronic diastolic (congestive) heart failure; R05 Cough; J45.20 Mild intermittent asthma, uncomplicated; E78.5 Hyperlipidemia, unspecified; K21.9 Gastro-esophageal reflux disease without esophagitis; Z13.9 Encounter for screening, unspecified; Z79.899 Other long term (current) drug therapy; Z79.82 Long term (current) use of aspirin; Z98.890 Other specified postprocedural states; Z91.041 Radiographic dye allergy status

== ENCOUNTER → 2019-12-14 | Outpatient (CLI) | payer OTHER | END | disposition home or self-care (01) | LOC: RAD 13:46 | PROVIDERS: ATTEND Internal Medicine | DX: M85.80 Other specified disorders of bone density and structure, unspecified site (principal); Z13.9 Encounter for screening, unspecified; Z78.0 Asymptomatic menopausal state ==

== ENCOUNTER → 2020-07-18 | Outpatient (CLI) | payer OTHER | END | disposition home or self-care (01) | LOC: RESCLI 13:41 | PROVIDERS: ATTEND Internal Medicine | DX: I10 Essential (primary) hypertension (principal); E78.5 Hyperlipidemia, unspecified; I50.32 Chronic diastolic (congestive) heart failure; I48.0 Paroxysmal atrial fibrillation; J45.20 Mild intermittent asthma, uncomplicated; K21.9 Gastro-esophageal reflux disease without esophagitis; J30.2 Other seasonal allergic rhinitis; R39.15 Urgency of urination; M85.851 Other specified disorders of bone density and structure, right thigh; Z79.899 Other long term (current) drug therapy ==

== ENCOUNTER → 2020-07-19 | Outpatient (CLI) | payer OTHER ==
[2020-07-19 11:15] LABS: BASO % 0.3 % (0.0-1.0); EOS # 0.1 10*3/uL (0.0-0.4); EOS % 1.2 % (1.0-4.0); HEMATOCRIT 44.7 % (37.0-47.0); LYMPH # 2.4 10*3/uL (1.3-4.4); LYMPH % 32.8 % (27.0-41.0); MEAN CELL VOLUME 89.2 fl (81.0-99.0); MEAN CORPUSCULAR HGB 27.3 pg (27.0-31.0); MEAN CORPUSCULAR HGB CONC 30.6 g/dl (33.0-37.0); MEAN PLATELET VOLUME 10.4 fl (9.6-12.3); MONO % 12.8 % (3.0-9.0); NEUT # 3.9 10*3/uL (2.3-7.9); NEUT % 52.5 % (47.0-73.0); PLATELET COUNT AUTOMATED 254 10*3/uL (130-400); RED BLOOD COUNT 5.01 10*6/uL (4.10-5.10); RED CELL DISTRI WIDTH 15.9 % (0-14.5); WHITE BLOOD COUNT 7.4 10*3/uL (4.8-10.8)
[2020-07-19 11:33] LABS: ALBUMIN 3.5 gm/dl (3.1-4.5); CREATININE 1.15 mg/dL (0.55-1.02); TOTAL PROTEIN 7.3 gm/dL (6.4-8.2)
[2020-07-19 12:17] LABS: VITAMIN D, 25-HYDROXY 26.5 ng/mL (30-100)
[2020-07-19 12:52] LABS: BILIRUBIN Negative (Negative); BLOOD Trace-Lysed (Negative); CLARITY Clear (Clear); COLOR Yellow (Yellow); GLUCOSE Negative (Negative); KETONE Negative (Negative); LEUKO ESTERASE Negative (Negative); NITRITE Negative (Negative); UROBILINOGEN 0.2 E.U./dl (0.0-1.0)
[2020-07-19 13:27] LABS: BACTERIA TRACE
== END | disposition home or self-care (01) ==
LOC: LAB 10:36
PROVIDERS: Hospitalist; ATTEND Internal Medicine
DX: I10 Essential (primary) hypertension (principal); I48.0 Paroxysmal atrial fibrillation; M85.851 Other specified disorders of bone density and structure, right thigh; E78.5 Hyperlipidemia, unspecified; R39.12 Poor urinary stream

== ENCOUNTER → 2021-02-27 | Outpatient (CLI) | payer OTHER | END | disposition home or self-care (01) | LOC: COVID19 17:21 | PROVIDERS: ATTEND Internal Medicine | DX: Z11.52 Encounter for screening for COVID-19 (principal) ==

== ENCOUNTER → 2021-04-03 | Outpatient (CLI) | payer OTHER | END | disposition home or self-care (01) | LOC: RESCLI 02:50 | PROVIDERS: ATTEND Internal Medicine | DX: I11.0 Hypertensive heart disease with heart failure (principal); I50.32 Chronic diastolic (congestive) heart failure; E78.5 Hyperlipidemia, unspecified; I48.0 Paroxysmal atrial fibrillation; J45.20 Mild intermittent asthma, uncomplicated; E55.9 Vitamin D deficiency, unspecified; Z86.73 Personal history of transient ischemic attack (TIA), and cerebral infarction without residual deficits; Z79.899 Other long term (current) drug therapy ==

== ENCOUNTER → 2021-04-04 | Outpatient (CLI) | payer OTHER ==
[2021-04-04 10:26] LABS: BASO % 0.5 % (0.0-1.0); EOS # 0.2 10*3/uL (0.0-0.4); EOS % 2.9 % (1.0-4.0); HEMATOCRIT 46.1 % (37.0-47.0); MEAN CELL VOLUME 96.8 fl (81.0-99.0); MEAN CORPUSCULAR HGB 30.9 pg (27.0-31.0); MEAN CORPUSCULAR HGB CONC 31.9 g/dl (33.0-37.0); MEAN PLATELET VOLUME 10.8 fl (9.6-12.3); MONO # 0.7 10*3/uL (0.1-1.0); MONO % 11.3 % (3.0-9.0); NEUT % 51.1 % (47.0-73.0); PLATELET COUNT AUTOMATED 223 10*3/uL (130-400); RED BLOOD COUNT 4.76 10*6/uL (4.10-5.10); RED CELL DISTRI WIDTH 14.3 % (0-14.5); WHITE BLOOD COUNT 5.8 10*3/uL (4.8-10.8)
[2021-04-04 10:40] LABS: ALBUMIN 3.6 gm/dl (3.1-4.5); CREATININE 1.16 mg/dL (0.55-1.02); TOTAL PROTEIN 7.2 gm/dL (6.4-8.2)
[2021-04-04 10:48] LABS: THYROID STIM HORMONE (HS) 1.25 uIU/ml (0.358-4.75)
== END | disposition home or self-care (01) ==
LOC: LAB 09:24
PROVIDERS: Social Worker Clinical; ATTEND Internal Medicine
DX: E55.9 Vitamin D deficiency, unspecified (principal); I10 Essential (primary) hypertension; Z79.899 Other long term (current) drug therapy

== ENCOUNTER → 2021-06-04 | Outpatient (CLI) | payer OTHER | END | disposition home or self-care (01) | LOC: CARD 11:15 | PROVIDERS: ATTEND Internal Medicine Cardiovascular Disease | DX: I07.1 Rheumatic tricuspid insufficiency (principal); I11.0 Hypertensive heart disease with heart failure; I50.32 Chronic diastolic (congestive) heart failure; I48.21 Permanent atrial fibrillation; I27.20 Pulmonary hypertension, unspecified; R06.02 Shortness of breath ==

== ENCOUNTER → 2021-10-02 | Outpatient (CLI) | payer OTHER | END | disposition home or self-care (01) | LOC: RESCLI 01:41 | PROVIDERS: ATTEND Internal Medicine | DX: R04.2 Hemoptysis (principal); I11.0 Hypertensive heart disease with heart failure; K21.9 Gastro-esophageal reflux disease without esophagitis; I50.32 Chronic diastolic (congestive) heart failure; E78.5 Hyperlipidemia, unspecified; I48.0 Paroxysmal atrial fibrillation; E55.9 Vitamin D deficiency, unspecified; Z86.73 Personal history of transient ischemic attack (TIA), and cerebral infarction without residual deficits; Z79.899 Other long term (current) drug therapy; Z88.8 Allergy status to other drugs, medicaments and biological substances ==

== ENCOUNTER → 2021-10-02 | Outpatient (CLI) | payer OTHER ==
[2021-10-02 14:24] LABS: BASO % 0.3 % (0.0-1.0); EOS # 0.2 10*3/uL (0.0-0.4); EOS % 2.6 % (1.0-4.0); HEMATOCRIT 42.9 % (37.0-47.0); LYMPH # 2.1 10*3/uL (1.3-4.4); LYMPH % 36.5 % (27.0-41.0); MEAN CELL VOLUME 95.3 fl (81.0-99.0); MEAN CORPUSCULAR HGB 30.9 pg (27.0-31.0); MEAN CORPUSCULAR HGB CONC 32.4 g/dl (33.0-37.0); MEAN PLATELET VOLUME 10.5 fl (9.6-12.3); MONO # 0.7 10*3/uL (0.1-1.0); MONO % 11.8 % (3.0-9.0); NEUT # 2.8 10*3/uL (2.3-7.9); NEUT % 48.5 % (47.0-73.0); PLATELET COUNT AUTOMATED 198 10*3/uL (130-400); WHITE BLOOD COUNT 5.8 10*3/uL (4.8-10.8)
[2021-10-02 14:42] LABS: BUN 13 mg/dl (7-24); CHLORIDE 108 mmol/L (98-107); CHOLESTEROL 121 mg/dL (<200); CREATININE 1.07 mg/dL (0.55-1.02); LDL CHOLESTEROL 46 mg/dL (9-159); POTASSIUM 4.3 mmol/L (3.5-5.1); SGOT/AST 25 IU/L (3-35); SGPT/ALT 19 U/L (12-78); SODIUM 143 mmol/L (136-145); TOTAL PROTEIN 6.9 gm/dL (6.4-8.2); TRIGLYCERIDES 83 mg/dl (<150)
[2021-10-02 14:51] LABS: ALKALINE PHOSPHATASE 97 U/L (45-117)
[2021-10-02 19:59] LABS: VITAMIN D, 25-HYDROXY 38.2 ng/mL (30-100)
== END | disposition home or self-care (01) ==
LOC: LAB 14:07
PROVIDERS: Internal Medicine; ATTEND Internal Medicine
DX: E78.5 Hyperlipidemia, unspecified (principal); R04.2 Hemoptysis; E55.9 Vitamin D deficiency, unspecified; I10 Essential (primary) hypertension; I51.7 Cardiomegaly; M51.34 Other intervertebral disc degeneration, thoracic region; M85.88 Other specified disorders of bone density and structure, other site; I70.90 Unspecified atherosclerosis

== ENCOUNTER → 2021-11-12 | Outpatient (CLI) | payer OTHER | END | disposition home or self-care (01) | LOC: RESCLI 01:22 | PROVIDERS: ATTEND Student in an Organized Health Care Education/Training Program | DX: R04.2 Hemoptysis (principal); Z86.73 Personal history of transient ischemic attack (TIA), and cerebral infarction without residual deficits; E78.5 Hyperlipidemia, unspecified; I48.0 Paroxysmal atrial fibrillation; E55.9 Vitamin D deficiency, unspecified; I11.0 Hypertensive heart disease with heart failure; I50.32 Chronic diastolic (congestive) heart failure; M17.0 Bilateral primary osteoarthritis of knee; Z79.899 Other long term (current) drug therapy; Z88.8 Allergy status to other drugs, medicaments and biological substances; Z79.01 Long term (current) use of anticoagulants; Z79.82 Long term (current) use of aspirin ==

== ENCOUNTER → 2021-11-18 | Outpatient (CLI) | payer OTHER | END | disposition home or self-care (01) | LOC: CT 11-05 14:00 | PROVIDERS: ATTEND Internal Medicine | DX: R91.8 Other nonspecific abnormal finding of lung field (principal); I51.7 Cardiomegaly ==

== ENCOUNTER → 2022-08-25 | Outpatient (CLI) | payer OTHER | END | disposition home or self-care (01) | LOC: RESCLI 01:21 | PROVIDERS: ATTEND Family Medicine | DX: I13.0 Hypertensive heart and chronic kidney disease with heart failure and stage 1 through stage 4 chronic kidney disease, or unspecified chronic kidney disease (principal); I50.32 Chronic diastolic (congestive) heart failure; N18.9 Chronic kidney disease, unspecified; J44.9 Chronic obstructive pulmonary disease, unspecified; R04.2 Hemoptysis; E78.5 Hyperlipidemia, unspecified; I48.0 Paroxysmal atrial fibrillation; Z82.49 Family history of ischemic heart disease and other diseases of the circulatory system; Z98.890 Other specified postprocedural states; Z79.899 Other long term (current) drug therapy ==

== ENCOUNTER → 2023-03-02 | Outpatient (CLI) | payer OTHER ==
[2023-03-02 15:54] LABS: BASO % 0.6 % (0.0-1.0); EOS # 0.1 10*3/uL (0.0-0.4); EOS % 1.7 % (1.0-4.0); HEMATOCRIT 41.3 % (37.0-47.0); LYMPH # 1.9 10*3/uL (1.3-4.4); LYMPH % 35.6 % (27.0-41.0); MEAN CELL VOLUME 96.7 fl (81.0-99.0); MEAN CORPUSCULAR HGB 31.4 pg (27.0-31.0); MEAN CORPUSCULAR HGB CONC 32.4 g/dl (33.0-37.0); MEAN PLATELET VOLUME 10.4 fl (9.6-12.3); MONO # 0.7 10*3/uL (0.1-1.0); MONO % 12.5 % (3.0-9.0); NEUT # 2.6 10*3/uL (2.3-7.9); NEUT % 49.2 % (47.0-73.0); PLATELET COUNT AUTOMATED 193 10*3/uL (130-400); RED BLOOD COUNT 4.27 10*6/uL (4.10-5.10); RED CELL DISTRI WIDTH 13.5 % (0-14.5); WHITE BLOOD COUNT 5.4 10*3/uL (4.8-10.8)
[2023-03-02 15:55] LABS: BILIRUBIN Negative (Negative); BLOOD Trace-Intact (Negative); CLARITY Clear (Clear); COLOR Yellow (Yellow); GLUCOSE Negative (Negative); KETONE Negative (Negative); LEUKO ESTERASE Negative (Negative); NITRITE Negative (Negative); UROBILINOGEN 0.2 E.U./dl (0.0-1.0)
[2023-03-02 16:20] LABS: EPITHELIAL CELLS 0-2; HYALINE CAST 0-2
[2023-03-02 16:34] LABS: POTASSIUM 3.8 mmol/L (3.4-5.1); TOTAL PROTEIN 6.5 gm/dL (6.0-8.0)
== END | disposition home or self-care (01) ==
LOC: RESCLI 15:16
PROVIDERS: Internal Medicine; ATTEND Student in an Organized Health Care Education/Training Program
DX: N39.0 Urinary tract infection, site not specified (principal); R10.9 Unspecified abdominal pain; E78.5 Hyperlipidemia, unspecified; Z13.9 Encounter for screening, unspecified; I48.0 Paroxysmal atrial fibrillation; I13.0 Hypertensive heart and chronic kidney disease with heart failure and stage 1 through stage 4 chronic kidney disease, or unspecified chronic kidney disease; I50.32 Chronic diastolic (congestive) heart failure; N18.9 Chronic kidney disease, unspecified; Z98.890 Other specified postprocedural states; Z82.49 Family history of ischemic heart disease and other diseases of the circulatory system; Z79.01 Long term (current) use of anticoagulants; Z91.041 Radiographic dye allergy status; Z79.899 Other long term (current) drug therapy

== ENCOUNTER → 2023-03-03 | Outpatient (CLI) | payer OTHER ==
[2023-03-03 10:19] LABS: BASO % 0.6 % (0.0-1.0); EOS # 0.1 10*3/uL (0.0-0.4); EOS % 2.3 % (1.0-4.0); HEMATOCRIT 42.8 % (37.0-47.0); LYMPH # 1.4 10*3/uL (1.3-4.4); MEAN CELL VOLUME 97.3 fl (81.0-99.0); MEAN CORPUSCULAR HGB 31.6 pg (27.0-31.0); MEAN CORPUSCULAR HGB CONC 32.5 g/dl (33.0-37.0); MEAN PLATELET VOLUME 10.1 fl (9.6-12.3); MONO # 0.5 10*3/uL (0.1-1.0); MONO % 11.2 % (3.0-9.0); NEUT # 2.7 10*3/uL (2.3-7.9); NEUT % 56.7 % (47.0-73.0); PLATELET COUNT AUTOMATED 192 10*3/uL (130-400); RED CELL DISTRI WIDTH 13.5 % (0-14.5); WHITE BLOOD COUNT 4.7 10*3/uL (4.8-10.8)
[2023-03-03 10:48] LABS: POTASSIUM 3.9 mmol/L (3.4-5.1); TOTAL PROTEIN 6.4 gm/dL (6.0-8.0)
== END | disposition home or self-care (01) ==
LOC: LAB 09:31
PROVIDERS: Internal Medicine; ATTEND Internal Medicine
DX: E78.5 Hyperlipidemia, unspecified (principal); Z13.9 Encounter for screening, unspecified; N39.0 Urinary tract infection, site not specified; Z79.899 Other long term (current) drug therapy

== ENCOUNTER → 2023-09-16 | Outpatient (CLI) | payer MEDICARE ==
[2023-09-16 14:45] LABS: TOTAL PROTEIN 7.1 gm/dL (6.0-8.0)
== END | disposition home or self-care (01) ==
LOC: RESCLI 01:44
PROVIDERS: Family Medicine; ATTEND Internal Medicine
DX: E78.5 Hyperlipidemia, unspecified (principal); R25.2 Cramp and spasm; Z79.82 Long term (current) use of aspirin; Z79.01 Long term (current) use of anticoagulants; Z79.899 Other long term (current) drug therapy

== ENCOUNTER → 2024-07-11 | Outpatient (CLI) | payer MEDICARE ==
[2024-07-11 16:25] LABS: BASO % 0.5 % (0.0-1.0); BILIRUBIN 1+ (Negative); BLOOD Negative (Negative); CLARITY Cloudy (Clear); COLOR Dark Yellow (Yellow); EOS # 0.1 10*3/uL (0.0-0.4); EOS % 1.7 % (1.0-4.0); GLUCOSE Negative (Negative); HEMATOCRIT 44.2 % (37.0-47.0); KETONE Trace (Negative); LEUKO ESTERASE Negative (Negative); MEAN CELL VOLUME 98.9 fl (81.0-99.0); MEAN CORPUSCULAR HGB 30.9 pg (27.0-31.0); MEAN CORPUSCULAR HGB CONC 31.2 g/dl (33.0-37.0); MEAN PLATELET VOLUME 9.8 fl (9.6-12.3); MONO # 0.8 10*3/uL (0.1-1.0); MONO % 14.1 % (3.0-9.0); NEUT # 2.6 10*3/uL (2.3-7.9); NEUT % 44.2 % (47.0-73.0); NITRITE Negative (Negative); PLATELET COUNT AUTOMATED 205 10*3/uL (130-400); RED BLOOD COUNT 4.47 10*6/uL (4.10-5.10); RED CELL DISTRI WIDTH 12.8 % (0-14.5); SPECIFIC GRAVITY >= 1.030 (1.001-1.030); WHITE BLOOD COUNT 5.9 10*3/uL (4.8-10.8)
[2024-07-11 16:51] LABS: EPITHELIAL CELLS 16-20; RBC 0-2 rbc/hpf (0-2)
[2024-07-11 16:52] LABS: BACTERIA TRACE; HYALINE CAST 0-2; MUCOUS 2+
[2024-07-11 17:02] LABS: POTASSIUM 3.9 mmol/L (3.4-5.1)
== END ==
LOC: RESCLI 01:42
PROVIDERS: ATTEND Student in an Organized Health Care Education/Training Program
DX: R35.0 Frequency of micturition (principal); R60.0 Localized edema; E78.5 Hyperlipidemia, unspecified; I48.0 Paroxysmal atrial fibrillation; M19.90 Unspecified osteoarthritis, unspecified site; M54.9 Dorsalgia, unspecified; Z79.899 Other long term (current) drug therapy

== ENCOUNTER → 2025-02-20 | Outpatient (CLI) | payer MEDICARE ==
[2025-02-20 14:54] LABS: BILIRUBIN Negative (Negative); BLOOD Trace-Intact (Negative); CLARITY Clear (Clear); COLOR Yellow (Yellow); KETONE Negative (Negative); LEUKO ESTERASE Negative (Negative); NITRITE Negative (Negative); PH 6.5 (4.5-8.0); SPECIFIC GRAVITY 1.010 (1.001-1.030); UROBILINOGEN 0.2 E.U./dl (0.0-1.0)
[2025-02-20 15:11] LABS: BACTERIA TRACE; WBC 0-2 wbc/hpf (0-5)
== END | disposition home or self-care (01) ==
LOC: RESCLI 03:03 → LAB 03:22 → RESCLI 03:22
PROVIDERS: ATTEND Internal Medicine
DX: M47.817 Spondylosis without myelopathy or radiculopathy, lumbosacral region (principal); M48.07 Spinal stenosis, lumbosacral region; R35.0 Frequency of micturition; M54.9 Dorsalgia, unspecified